=== PATIENT | male | born 1935 | race African-American/Black ===

== ENCOUNTER 2017-07-17 17:13 | Emergency (ER) | payer MEDICARE ==
[~2017-07-17] VITALS: Ht 175.3 cm; Wt 75.0 kg
[~2017-07-17 17:13] MED LIST: ATEN-42 PO; RISO02 PO; SIMV10TA6 PO; WARF1TAB46 PO
[2017-07-17] MEDS ORDERED: CLINDAMYCIN 600 MG in DEXTROSE 5% WATER 50 ML IV ONE (19:00)
[2017-07-17 20:30] LABS: BASOPHILS % 0.3 % (0.0-2.0); EOSINOPHILS % 3.1 % (0.0-5.0); HEMATOCRIT. 41.4 % (42.0-52.0); HEMOGLOBIN. 13.9 g/dL (14.0-18.0); LYMPHOCYTES % 15.7 % (20.0-50.0); MEAN CORPUSCULAR HEMOGLOBIN 29.4 pg (28.0-32.0); MEAN CORPUSCULAR VOLUME 87.8 fL (80.0-94.0); MEAN PLATELET VOLUME 9.1 fl (7.4-10.4); NEUTROPHILS % 70.9 % (40.0-76.0); PLATELET 238 x1000/uL (130-400); RED BLOOD CELL COUNT 4.72 mill/uL (4.7-6.1); RED CELL DISTRIBUTION WIDTH 14.2 % (11.6-14.6)
[2017-07-17 20:35] LABS: CHLORIDE 102 mEq/L (98-107)
[2017-07-17 20:38] LABS: INR 2.3; PARTIAL THROMBOPLASTIN TIME 36.4 sec (23.4-31.0); PROTHROMBIN TIME 24.3 sec (9.4-11.6)
[2017-07-17] MEDS ORDERED: CLONAZEPAM 0.5MG TABLET PO ONE (21:15)
[2017-07-17 22:30] VITALS: BP 125/75
== END 2017-07-17 22:45 | disposition home or self-care (01) ==
LOC: ER 17:41
DX: L03.011 Cellulitis of right finger (principal); I10 Essential (primary) hypertension; G20 Parkinson's disease; Z79.01 Long term (current) use of anticoagulants; Z95.2 Presence of prosthetic heart valve
CPT/HCPCS: 36415; 73130; 80053; 85025; 85610; 85730; 87040; 96365; 99285; J3490; J7060